=== PATIENT | female | born 1940 ===

== ENCOUNTER 2017-07-10 06:31 | Day surgery (SDC) | payer MEDICARE ==
[~2017-07-10 06:31] MED LIST: Buffered Lidocaine 0.9% SYRIN* 5 ML/SYR SYRINGE INTRADERM ONE
[2017-07-10] MEDS ORDERED: Bupivacaine 0.25% SDV* 30 ML ONE (07:19)
[2017-07-10] MEDS ORDERED: Lidocaine 1.5% EPI 1:200,000* 30 ML SDV ONE (07:42)
[2017-07-10] MEDS ORDERED: fentaNYL* 50 MCG/ML 2 ML VIAL (100 MCG VIAL) ONE (07:45)
[2017-07-10] MEDS ORDERED: Midazolam* 1 MG/ML 2 ML VIAL (2 MG) ONE (07:45)
[2017-07-10 08:54] VITALS: BP 111/72
--- NOTE | 2017-07-10 21:13 | OP ---
OPERATIVE REPORT: DATE OF OPERATION: 07/10/17 DATE OF : 38 SURGEON: Anand Linder MD LICENSED REACTOR OPERATOR: BO Madera ANESTHESIOLOGIST: Dr. Diaz. ANESTHESIA: Local MAC. PRE-OP DIAGNOSIS: Right carpal tunnel syndrome. POST-OP DIAGNOSIS: Right carpal tunnel syndrome. OPERATIVE PROCEDURE: Right open carpal tunnel release. INDICATIONS: Lavern has severe right carpal tunnel syndrome. We had talked about risks and benefits. She had elected to proceed with surgery. ESTIMATED BLOOD LOSS: 2 mL. COMPLICATIONS: None. FINDINGS: As expected. DESCRIPTION OF PROCEDURE: Lavern was seen in the preoperative holding area and the correct side, site, and procedure were identified. We came back to the operating room where we had a time-out and I infiltrated the operative area with 0.25% plain Marcaine. The arm was prepped and draped in the usual fashion and a formal time- out was performed. I began by making a 2 to 3 cm incision in the standard location for an open carpal tunnel release. Dissection was carried down through the subcutaneous tissue and the palmar fascia to expose the transverse carpal ligament. This was released just off the radial aspect of the hook of the hamate starting distally and working proximally. The release was completed distally. I then turned my attention proximally where the fat was released and retracted volarly and ulnarly. Under direct visualization, a 15 blade and then the tenotomy scissors were used to release the remainder of the transverse carpal ligament at the distal antebrachial fascia off the ulnar aspect of the palmaris longus tendon to a level of several centimeters proximal to the wrist flexion crease. I then released distally and proximally. Everything looked good. There was absolutely no compression on the nerve. I irrigated out the wound. The skin was closed with 4-0 nylon suture. Tourniquet was deflated and the hand pinked up immediately. The arm had been exsanguinated with the Esmarch and the tourniquet inflated to 250 mmHg prior to making skin incision. Dressings including Xeroform, 4x4's, sterile Webril and an Kulwinder bandage were applied. She was then taken to the recovery room in stable condition. [id number]/[facility] #: [id number] MTDD
== END 2017-07-10 08:16 | disposition home or self-care (01) ==
LOC: OREAST 06:31
PROVIDERS: ATTEND Orthopaedic Surgery Hand Surgery
DX: G56.01 Carpal tunnel syndrome, right upper limb (principal); E11.9 Type 2 diabetes mellitus without complications; I10 Essential (primary) hypertension; E03.9 Hypothyroidism, unspecified
CPT/HCPCS: J2250; J3010